=== PATIENT | male | born 1990 | race African-American/Black ===

== ENCOUNTER 2017-05-02 00:56 | Emergency (ER) | payer MEDICAID ==
[~2017-05-02] VITALS: Ht 170.2 cm; Wt 82.0 kg
[~2017-05-02 00:56] MED LIST: BENADRYL
[2017-05-02] MEDS ORDERED: IBUPROFEN 800MG TABLET PO ONE (03:30)
[2017-05-02 04:47] VITALS: BP 128/87
== END 2017-05-02 04:50 | disposition home or self-care (01) ==
LOC: ER 00:56
DX: S09.8XXA Other specified injuries of head, initial encounter (principal); S40.011A Contusion of right shoulder, initial encounter; F17.210 Nicotine dependence, cigarettes, uncomplicated; F12.10 Cannabis abuse, uncomplicated; Z87.81 Personal history of (healed) traumatic fracture; V43.62XA Car passenger injured in collision with other type car in traffic accident, initial encounter; Y93.89 Activity, other specified; Y92.488 Other paved roadways as the place of occurrence of the external cause
CPT/HCPCS: 99282